=== PATIENT | male | born 1955 | race Caucasian/White ===

== ENCOUNTER 2020-06-01 15:36 | Emergency (ER) | payer MEDICARE ==
[~2020-06-01 15:36] MED LIST: ETOMIDATE INJ/PF 20 MG/10 ML SDV IV ONE; ROCURONIUM BROMIDE INJ 50 MG/5 ML VIAL IV ONE
[2020-06-01] MEDS ORDERED: LORAZEPAM INJ 2 MG/1 ML VIAL IV ONE (15:42)
[2020-06-01] MEDS ORDERED: LEVETIRACETAM 1000 MG/NACL-ISO 1,000 MG/100 ML RTUPB IV ONE (15:43)
[2020-06-01] MEDS ORDERED: LABETALOL HCL INJ 20 MG/4 ML DISP.SYRIN IV ONE ×4 (15:48→16:34)
[2020-06-01] MEDS ORDERED: TRANEXAMIC ACID INJ/PF 1,000 MG/10 ML SDV IV ONE (15:51)
[2020-06-01] MEDS ORDERED: ETOMIDATE INJ/PF 20 MG/10 ML SDV IV ONE (15:51)
[2020-06-01] MEDS ORDERED: ROCURONIUM BROMIDE INJ 50 MG/5 ML VIAL IV ONE (15:52)
--- NOTE | 2020-06-01 15:57 | RADIOLOGY REPORT (SQ) ---
EXAM DESCRIPTION: CT HEAD WITHOUT IMAGES COMPLETED DATE/TIME: 06/01/2020 3:46 pm REASON FOR STUDY: AMS COMPARISON: None. TECHNIQUE: Axial images acquired through the brain without intravenous contrast. Images reviewed wit h bone, brain and subdural windows. Images stored on PACS. All CT scanners at this facility use dose modulation, iterative reconstruction, and/or weight based d osing when appropriate to reduce radiation dose to as low as reasonably achievable (ALARA). [facility]: Dose Right [facility]: CareDose [facility]: Dose Right [facility]: Teradose 4D [facility]: [employer] RADIATION DOSE: . LIMITATIONS: None. FINDINGS: VENTRICLES: Normal size and contour. CEREBRUM: Multiple intraparenchymal hemorrhages bilaterally, measuring up to 3.5 cm in the inferior l eft frontal, anterior superior left frontal, and left parietal lobes. There are also areas of sub-ar achnoid blood over the right frontal lobe convexity. No midline shift. Age appropriate white matter. No evidence for acute infarction. CEREBELLUM: No masses. No hemorrhage. No alteration of density. No evidence for acute infarction. EXTRA-AXIAL SPACES: No fluid collections. ORBITS AND GLOBE: No intra- or extraconal masses. Normal contour of globe without masses. CALVARIUM: No fracture. PARANASAL SINUSES: No fluid or mucosal thickening. SOFT TISSUES: No mass or hematoma. OTHER: No other significant finding. IMPRESSION: Multiple intraparenchymal hemorrhages bilaterally, measuring up to 3.5 cm in the inferio r left frontal, anterior superior left frontal, and left parietal lobes. There are also areas of sub -arachnoid blood over the right frontal lobe convexity. No midline shift. EVIDENCE OF ACUTE STROKE: NO. COMMENT: Results were called to Dr. Salazar at 1548 hours. Results were confirmed and read back. TECHNICAL DOCUMENTATION: JOB ID: [id number] [id number] Quality ID # [id number]: Final reports with documentation of one or more dose reduction techniques (e.g., Au tomated exposure control, adjustment of the mA and/or kV according to patient size, use of iterative reconstruction technique) 2010 [employer]- All Rights Reserved Reading location - IP/workstation name: [email or web address]
[2020-06-01] MEDS: NICARDIPINE HCL RTU, ISO-OS 20 MG/200 ML RTUINJ IV PRN ×2 (16:05→16:24)
[2020-06-01] MEDS ORDERED: MIDAZOLAM HCL 50 MG/100 ML RTUINJ IV PRN (16:12)
--- NOTE | 2020-06-01 16:27 | ER Document Report ---
ED General - General Chief Complaint: S/S of Possible Stroke Stated Complaint: POSSIBLE STROKE Time Seen by Provider: 06/01/20 15:48 Primary Care Provider: WANDA PERSON MD [Primary Care Provider] - Follow up as needed - [facility] Notes: Patient is a 65-year-old male brought in the emergency department for evaluation. History is obtained from EMS as well as significant other. Evidently he started acting strangely this morning. He was just acting "not right" per live-in girlfriend. At about 1:00 he stopped talking. He started acting more strangely, then was incontinent. No history of trauma per girlfriend. Patient's girlfriend admits to me that he is often noncompliant with his medications. - Related Data Allergies/Adverse Reactions: morphine Allergy (Verified 06/01/20 16:19) Morphine Allergy (Uncoded 06/01/20 16:19) Home Medications: Ventolin, Lexapro, pantoprazole, Xanax, atenolol, amlodipine, fluticasone, atorvastatin Past Medical History - General Information source: Friend, Emergency Med Personnel - Social History Smoking Status: Current Every Day Smoker Frequency of alcohol use: Heavy Drug Abuse: Marijuana Family History: Reviewed & Not Pertinent Patient has homicidal ideation: No - Past Medical History Cardiac Medical History: Reports: Hx Heart Attack, Hx Hypercholesterolemia, Hx Hypertension Pulmonary Medical History: Reports: Hx COPD Neurological Medical History: Reports: Hx Cerebrovascular Accident GI Medical History: Reports: Hx Gastroesophageal Reflux Disease Review of Systems - Review of Systems -: Yes ROS unobtainable due to patient's medical condition Physical Exam - Vital signs Vitals: Resp Pulse Ox 28 H 77 L 06/01/20 15:41 06/01/20 15:41 - Notes Notes: Initial exam done at doorway. Patient was brought in via EMS. He was sitting in a semi-Fowlers position, upright and alert, looking around with no apparent hemideficit. He was completely nonverbal. He moves all 4 extremities spontaneously, would not follow any commands. Pupils equal round, reactive to light. Oral mucosa is moist. Heart regular rate and rhythm, lungs show diminished breath sounds but no wheezes, rales, rhonchi. Abdomen is soft, appears nontender, normoactive bowel sounds. Skin is warm and dry. Course - Re-evaluation Re-evalutation: 06/01/20 16:28 Patient presents to the emergency department for evaluation. Based on initial presentation he was called as a code stroke. He went immediately to head CT. It was on scan that multiple intraparenchymal hemorrhages were identified bilaterally. He was brought back to the room. Upon being into the room he had a grand mal seizure. Ativan 2 mg IV was ordered. He is placed on a nonrebreather. I also ordered Keppra 1 g IV. Multiple lines were established. The patient had remained hypertensive, so labetalol 20 mg IV was ordered, followed by a Cardene drip. Patient was postictal, had been nonverbal, not following commands, decision was made to secure his airway. This was performed without complication, please see separate procedure note. I was unsure as to p tomy's anticoagulant status, initial order to administer tranexamic acid placed as well. I contacted patient's girlfriend, she was notified of all findings, and the need for transfer. I have contacted [facility] for transport. Patient remains intubated and sedated on a Versed drip. 06/01/20 16:58 I initially spoke to [facility] at 1608, and was contacted by Priscila Moss of the neuro team at 1641. I was notified at that time that they would be happy to accept the patient, but they did not have a place for the patient to be accepted to. They encouraged me to seek out alternative options in regards to acceptance, and would reach out to me again. I was in the midst of speaking to physician at [facility], when I was notified that they will accept the patient to the emergency department at [facility]. I received this phone call at 1656. Patient will be accepted by Dr. Tellez. Patient had been markedly hypertensive and tachycardic, but now is off of the Cardene drip and is actually borderline hypotensive. His heart rate remains in the 90s. Otherwise, update given to girlfriend, awaiting helicopter for transport. 06/01/20 18:02 Patient blood pressures have dropped considerably. He has been off the Cardene drip for some time. He is on a Versed drip, intermittently coughing and gagging. I am hesitant to paralyze him again just based simply on the fact that his blood pressures are soft as they are. I do not want to drop his cerebral perfusion pressure even lower. Helicopter in route. - Vital Signs Vital signs: Temp Pulse Resp BP Pulse Ox 100.4 F 97 26 H 106/73 99 06/01/20 18:06 06/01/20 16:20 06/01/20 18:06 06/01/20 18:06 06/01/20 18:06 - Laboratory Results Result Diagrams: 06/01/20 17:00 06/01/20 17:00 Laboratory Results Interpreted: 06/01/20 06/01/20 06/01/20 15:47 16:22 17:00 WBC 12.9 H Seg Neuts % (Manual) 92 H Lymphocytes % (Manual) 3 L Abs Neuts (Manual) 11.9 H Abs Lymphs (Manual) 0.4 L Carbon Dioxide Glucose POC Glucose 126 H Albumin Urine Protein 100 H Urine Ketones TRACE H 06/01/20 17:00 WBC Seg Neuts % (Manual) Lymphocytes % (Manual) Abs Neuts (Manual) Abs Lymphs (Manual) Carbon Dioxide 21 L Glucose 234 H POC Glucose Albumin 5.2 H Urine Protein Urine Ketones Critical Laboratory Results Reviewed: No Critical Results - Radiology Results Radiology Results Interpreted: 06/01/20 17:[address] 06/01/20 00:00 IMPRESSION: Multiple intraparenchymal hemorrhages bilaterally, measuring up to 3.5 cm in the inferior left frontal, anterior superior left frontal, and left parietal lobes. There are also areas of sub-arachnoid blood over the right frontal lobe convexity. No midline shift. EVIDENCE OF ACUTE STROKE: NO. Chest X-Ray 06/01/20 16:10 IMPRESSION: SATISFACTORY POSITION OF THE ENDOTRACHEAL TUBE. NO ACUTE RADIOGRAPHIC FINDING IN THE CHEST. Critical Radiology Results Reviewed: Yes Attending or Supervising Physician who Reviewed Radiology: ANGELA PARIS Procedures - Intubation Orotracheal Time of Intubation: 16:08 Airway evaluation: Large tongue, Neck immobility Medications: Etomidate, Other - Rocuronium Intubation method: Orotracheal Blade size: 3 Equipment used: Glidescope ETT size: 7.5 ETT secured at: Teeth Breath Sounds after Intubation: Equal - But diminished bilaterally End tidal CO2 confirmed: Yes Intubation Complications: No complications Critical Care Note - Critical Care Note Total time excluding time spent on procedures (mins): 70 Discharge - Discharge Clinical Impression: Intraparenchymal hemorrhage of brain, Seizure, Hypertensive crisis Condition: Serious Disposition: [facility] Admitting Provider: Dr. Tellez Referrals: WANDA PERSON MD [Primary Care Provider] - Follow up as needed
--- NOTE | 2020-06-01 16:31 | RADIOLOGY REPORT (SQ) ---
EXAM DESCRIPTION: CHEST SINGLE VIEW IMAGES COMPLETED DATE/TIME: 06/01/2020 4:22 pm REASON FOR STUDY: ETT placement, ICH COMPARISON: None. EXAM PARAMETERS: NUMBER OF VIEWS: One view. TECHNIQUE: Single frontal radiographic view of the chest acquired. RADIATION DOSE: NA LIMITATIONS: None. FINDINGS: LUNGS AND PLEURA: No opacities, masses or pneumothorax. No pleural effusion. MEDIASTINUM AND HILAR STRUCTURES: No masses. Contour normal. HEART AND VASCULAR STRUCTURES: Heart normal in size. Normal vasculature. BONES: No acute findings. HARDWARE: Endotracheal tube, tip located 5 cm proximal to the sena. OTHER: No other significant finding. IMPRESSION: SATISFACTORY POSITION OF THE ENDOTRACHEAL TUBE. NO ACUTE RADIOGRAPHIC FINDING IN THE CH EST. TECHNICAL DOCUMENTATION: JOB ID: [id number] 2010 [employer]- All Rights Reserved Reading location - IP/workstation name: [email or web address]
[2020-06-01] MEDS ORDERED: MIDAZOLAM 2 MG/2 ML INJ IV ONE ×2 (17:06→18:01)
[2020-06-01 17:13] LABS: PROTHROMBIN TIME 13.4 SEC (11.4-15.4)
[2020-06-01 17:14] LABS: PARTIAL THROMBOPLASTIN TIME 27.5 SEC (23.5-35.8)
[2020-06-01 17:20] LABS: HEMATOCRIT 47.2 % (37.9-51.0); HEMOGLOBIN 15.9 g/dL (13.5-17.0); MEAN CORPUSCULAR HEMOGLOBIN 31.5 pg (27.0-33.4); MEAN CORPUSCULAR HGB CONC 33.7 g/dL (32.0-36.0); MEAN CORPUSCULAR VOLUME 93 fl (80-97); PLATELET COUNT 234 10^3/uL (150-450); RED BLOOD COUNT 5.06 10^6/uL (4.35-5.55); RED CELL DISTRIBUTION WIDTH 13.2 % (11.5-14.0); WHITE BLOOD COUNT 12.9 10^3/uL (4.0-10.5)
[2020-06-01 17:25] LABS: ALBUMIN 5.2 g/dL (3.5-5.0); ALKALINE PHOSPHATASE 86 U/L (38-126); ANION GAP 18 (5-19); ASPARTATE AMINO TRANSFERASE 32 U/L (17-59); BILIRUBIN,DIRECT 0.2 mg/dL (0.0-0.4); BILIRUBIN,TOTAL 0.9 mg/dL (0.2-1.3); BLOOD UREA NITROGEN 10 mg/dL (7-20); CALCIUM 9.4 mg/dL (8.4-10.2); CARBON DIOXIDE 21 mmol/L (22-30); CHLORIDE 102 mmol/L (98-107); CREATINE KINASE 141 U/L (55-170); GLUCOSE 234 mg/dL (75-110); POTASSIUM 4.3 mmol/L (3.6-5.0); TOTAL PROTEIN 8.1 g/dL (6.3-8.2)
--- NOTE | 2020-06-01 17:25 | EKG REPORT ---
SEVERITY:- ABNORMAL ECG - SINUS TACHYCARDIA BIATRIAL ABNORMALITIES NONSPECIFIC INTRAVENTRICULAR CONDUCTION DELAY : Confirmed by: Lila Mcdowell MD 01-Jun-2020 17:25:18
[2020-06-01 17:38] LABS: APPEARANCE,URINE CLEAR; BILIRUBIN,URINE NEGATIVE (NEGATIVE); COLOR,URINE STRAW; GLUCOSE, URINE NEGATIVE (NEGATIVE); KETONES,URINE TRACE mg/dL (NEGATIVE); LEUKOCYTE ESTERASE,URINE NEGATIVE (NEGATIVE); NITRITE,URINE NEGATIVE (NEGATIVE); PROTEIN,URINE 100 mg/dL (NEGATIVE); URINE SPECIFIC GRAVITY 1.011; UROBILINOGEN,URINE NEGATIVE mg/dL (<2.0)
[2020-06-01 17:43] LABS: ABSOLUTE LYMPHOCYTES# (MANUAL) 0.4 10^3/uL (0.5-4.7); ABSOLUTE MONOCYTES # (MANUAL) 0.5 10^3/uL (0.1-1.4); BASOPHILS % (MANUAL) 1 % (0-2); EOSINOPHILS % (MANUAL) 0 % (0-6); LYMPHOCYTES % (MANUAL) 3 % (13-45); MONOCYTES % (MANUAL) 4 % (3-13); PLATELET COMMENT ADEQUATE; RBC MORPHOLOGY COMMENT NORMO-CYTIC/CHROMIC; SEGMENTED NEUTROPHILS % (MAN) 92 % (42-78); TOTAL CELLS COUNTED 100
[2020-06-01 17:44] LABS: TROPONIN I < 0.012 ng/mL
[2020-06-01 17:50] LABS: URINE AMPHETAMINES SCREEN NEGATIVE; URINE BARBITURATES SCREEN NEGATIVE; URINE BENZODIAZEPINES SCREEN NEGATIVE; URINE COCAINE SCREEN NEGATIVE; URINE METHADONE SCREEN NEGATIVE; URINE PHENCYCLIDINE SCREEN NEGATIVE
[2020-06-01 17:52] LABS: URINE MARIJUANA (THC) SCREEN UNCONFIRMED POSITIVE
[2020-06-01 18:11] VITALS: BP 106/73
== END 2020-06-01 18:30 | disposition short-term general hospital (02) ==
LOC: EDBD → ER 15:36
DX: I61.9 Nontraumatic intracerebral hemorrhage, unspecified (principal); I16.9 Hypertensive crisis, unspecified; I10 Essential (primary) hypertension; R32 Unspecified urinary incontinence; G40.409 Other generalized epilepsy and epileptic syndromes, not intractable, without status epilepticus; R00.0 Tachycardia, unspecified; E78.00 Pure hypercholesterolemia, unspecified; J44.9 Chronic obstructive pulmonary disease, unspecified; I25.2 Old myocardial infarction; F17.200 Nicotine dependence, unspecified, uncomplicated; K21.9 Gastro-esophageal reflux disease without esophagitis; Z79.899 Other long term (current) drug therapy; Z91.14 Patient's other noncompliance with medication regimen; Z88.6 Allergy status to analgesic agent; Z88.5 Allergy status to narcotic agent
CPT/HCPCS: 93005; 96376; 99291; 96375; 96365; 96366; 96367; 96368; 36415; 82553; 82962; 82550; 85025; 85610; 85730; 80053; 81001; 84484; 80307; 71045; 70450; 94660; 93010; 31500; J2250 ×2; J3490 ×5; J2060; J1953